=== PATIENT | female | born 1930 | race African-American/Black ===

== ENCOUNTER → 2016-12-12 | Outpatient (CLI) | payer MEDICARE, MEDICAID ==
[~2016-12-12] MED LIST: AMLO10TA80 PO; ATOR20TA65 PO; DETROL; FURO20TA4 PO; IOHEXOL-300 50 ML BOTTLE IV ONE; LIPITOR; OXYB5TAB11 PO; PIOG30TA2 PO; PREG75CA PO; SODIUM CHLORIDE 0.9% 10ML VIAL ONE; TOLT4CAP PO
== END | disposition home or self-care (01) ==
LOC: CT 08:39
PROVIDERS: ATTEND Internal Medicine Gastroenterology
DX: R10.9 Unspecified abdominal pain (principal); M16.12 Unilateral primary osteoarthritis, left hip; Z96.641 Presence of right artificial hip joint
CPT/HCPCS: 74178; A4216; J7040; Q9967; A4315

== ENCOUNTER 2017-09-16 12:05 | Inpatient (IN) | payer MEDICARE, MEDICAID ==
[~2017-09-16] VITALS: Ht 157.5 cm; Wt 48.5 kg
[~2017-09-16 12:05] MED LIST changes: -IOHEXOL-300 50 ML BOTTLE IV ONE; +PIOG30TA10 PO; -PIOG30TA2 PO; -SODIUM CHLORIDE 0.9% 10ML VIAL ONE
[2017-09-16 14:21] LABS: BASOPHILS % 0.2 % (0.0-2.0); EOSINOPHILS % 0.1 % (0.0-5.0); HEMATOCRIT. 31.6 % (36.0-48.0); HEMOGLOBIN. 10.1 g/dL (12.0-16.0); LYMPHOCYTES % 23.1 % (20.0-50.0); MEAN CORPUSCULAR HEMOGLOBIN 25.9 pg (28.0-32.0); MEAN CORPUSCULAR VOLUME 80.6 fL (81.0-99.0); MEAN PLATELET VOLUME 8.7 fl (7.4-10.4); MONOCYTES % 10.3 % (2.0-8.0); NEUTROPHILS % 66.3 % (40.0-76.0); PLATELET 222 x1000/uL (130-400); RED BLOOD CELL COUNT 3.91 mill/uL (4.2-5.4); RED CELL DISTRIBUTION WIDTH 15.1 % (11.6-14.6)
[2017-09-16 14:26] LABS: PROTHROMBIN TIME 10.8 sec (9.4-11.6)
[2017-09-16 14:30] LABS: CHLORIDE 104 mEq/L (98-107)
[2017-09-16 14:35] LABS: BETA HYDROXYBUTYRATE 0.1 mMol/L (0.0-0.3); TROPONIN I < 0.02 ng/mL (0.00-0.04)
[2017-09-16] MEDS ORDERED: ACETAMINOPHEN 325MG TABLET PO PRN (21:15)
[2017-09-16] MEDS ORDERED: DEXTROSE 50% WATER 50ML SYRINGE IV PRN (21:15)
[2017-09-16] MEDS ORDERED: CLONIDINE 0.1MG TABLET PO PRN (21:15)
[2017-09-16] MEDS ORDERED: ONDANSETRON HCL 4MG/2ML VIAL IV PRN (21:15)
[2017-09-16] MEDS ORDERED: MAGNESIUM/ALUMINUM HYDROXIDE/SIMETHICONE 30ML UDC PO PRN (21:15)
[2017-09-16] MEDS ORDERED: DIPHENHYDRAMINE 50MG/ML VIAL IV PRN (21:15)
[2017-09-16] MEDS ORDERED: DEXTROSE 50% WATER 50ML SYRINGE IV ONE (23:45)
[2017-09-17 00:40] VITALS: BP_SYST 178; BP_DIAS 70; BP_DIAS 72
[2017-09-17] MEDS ORDERED: DEXT 5%/0.45% NACL 1000ML 1,000 ML IV ONE (02:00)
[2017-09-17] MEDS ORDERED: FURO20TA4 PO (03:42)
[2017-09-17 04:51] VITALS: BP 139/42
[2017-09-17] MEDS: BLOOD SUGAR DIAGNOSTIC STRIP TEST SCH ×4 (06:04→21:20)
[2017-09-17] MEDS: SODIUM CHLORIDE 0.9% INJ 3ML FLUSH IVF SCH ×3 (06:04→21:21)
[2017-09-17] MEDS ORDERED: INSULIN LISPRO 100 UNITS/ML SUBCUT SCH ×3 (07:50→17:50)
[2017-09-17 08:00] VITALS: BP 130/46
[2017-09-17 08:23] LABS: *AMPHETAMINES SCREEN URINE NEGATIVE (NEGATIVE); *BARBITURATES SCREEN URINE NEGATIVE (NEGATIVE); *BENZODIAZEPINES SCREEN URINE NEGATIVE (NEGATIVE); *COCAINE SCREEN URINE NEGATIVE (NEGATIVE); CANNABINOID URINE SCREEN NEGATIVE (NEGATIVE); METHADONE URINE SCREEN NEGATIVE (NEGATIVE); OPIATES URINE SCREEN NEGATIVE (NEGATIVE); PHENCYCLIDINE URINE SCREEN NEGATIVE (NEGATIVE)
[2017-09-17] MEDS: AMLODIPINE 10MG TABLET PO SCH (08:25)
[2017-09-17] MEDS: OXYBUTYNIN CHLORIDE 5MG TABLET PO SCH ×2 (08:25→16:26)
[2017-09-17] MEDS: FUROSEMIDE 20MG TABLET PO SCH ×2 (08:25→16:26)
[2017-09-17] MEDS: ENOXAPARIN 30MG/0.3ML SYR SUBCUT SCH (08:26)
[2017-09-17] MEDS: PREGABALIN 75MG CAPSULE PO SCH ×3 (08:26→16:30)
[2017-09-17 08:27] LABS: KETONES URINE NEGATIVE (NEGATIVE); LEUKOCYTE ESTERASE URINE 3+ (NEGATIVE); NITRITE URINE NEGATIVE (NEGATIVE); OCCULT BLOOD URINE 1+ (NEGATIVE); PROTEIN URINE 1+ (NEGATIVE); SPECIFIC GRAVITY URINE 1.025 (1.005-1.030); UROBILINOGEN URINE 0.2 E.U./dL (0.2-1.0)
[2017-09-17 08:29] LABS: CLARITY URINE CLOUDY (CLEAR); COLOR URINE YELLOW (YELLOW)
[2017-09-17] MEDS ORDERED: FUROSEMIDE 20MG TABLET PO SCH (09:00)
[2017-09-17 12:00] VITALS: BP 119/34
[2017-09-17] MEDS ORDERED: MAGNESIUM HYDROXIDE 400MG/5ML 30ML UDC PO PRN (15:45)
[2017-09-17 16:00] VITALS: BP 111/51
[2017-09-17 20:06] VITALS: BP 99/40
[2017-09-17] MEDS: INSULIN LISPRO 100 UNITS/ML SUBCUT SCH (21:00)
[2017-09-17] MEDS: ATORVASTATIN CALCIUM 20MG TABLET PO SCH (21:16)
[2017-09-18] VITALS (7 sets, daily range): BP systolic 103–137; BP diastolic 34–53
[2017-09-18] MEDS: BLOOD SUGAR DIAGNOSTIC STRIP TEST SCH ×4 (06:25→21:31)
[2017-09-18] MEDS: INSULIN LISPRO 100 UNITS/ML SUBCUT SCH ×4 (06:30→21:41)
[2017-09-18] MEDS: SODIUM CHLORIDE 0.9% INJ 3ML FLUSH IVF SCH ×3 (06:30→21:40)
[2017-09-18] MEDS: FUROSEMIDE 20MG TABLET PO SCH ×2 (08:44→18:25)
[2017-09-18] MEDS: OXYBUTYNIN CHLORIDE 5MG TABLET PO SCH ×2 (08:44→18:22)
[2017-09-18] MEDS: AMLODIPINE 10MG TABLET PO SCH (08:44)
[2017-09-18] MEDS: PREGABALIN 75MG CAPSULE PO SCH ×3 (08:44→18:22)
[2017-09-18] MEDS: ENOXAPARIN 30MG/0.3ML SYR SUBCUT SCH (08:45)
[2017-09-18] MEDS: ATORVASTATIN CALCIUM 20MG TABLET PO SCH (21:40)
[2017-09-19 04:00] VITALS: BP 149/57
[2017-09-19] MEDS: SODIUM CHLORIDE 0.9% INJ 3ML FLUSH IVF SCH ×3 (06:27→21:38)
[2017-09-19] MEDS: BLOOD SUGAR DIAGNOSTIC STRIP TEST SCH ×4 (06:29→21:38)
[2017-09-19] MEDS: INSULIN LISPRO 100 UNITS/ML SUBCUT SCH ×4 (06:30→21:38)
[2017-09-19 08:01] VITALS: BP 128/42
[2017-09-19] MEDS: FUROSEMIDE 20MG TABLET PO SCH ×2 (08:02→16:59)
[2017-09-19] MEDS: PREGABALIN 75MG CAPSULE PO SCH ×3 (08:02→16:59)
[2017-09-19] MEDS: OXYBUTYNIN CHLORIDE 5MG TABLET PO SCH ×2 (08:02→16:59)
[2017-09-19] MEDS: AMLODIPINE 10MG TABLET PO SCH (08:02)
[2017-09-19] MEDS: ENOXAPARIN 30MG/0.3ML SYR SUBCUT SCH (08:04)
[2017-09-19] MEDS ORDERED: PIOGLITAZONE 15MG TABLET PO SCH (09:00)
[2017-09-19 12:20] VITALS: BP 134/50
[2017-09-19 16:35] VITALS: BP 138/51
[2017-09-19] MEDS: ZINC SULFATE 220 MG ( 50 ) CAPSULE PO SCH (16:58)
[2017-09-19] MEDS: ASCORBIC ACID 500 MG TABLET PO SCH (16:59)
[2017-09-19 20:51] VITALS: BP 114/44
[2017-09-19] MEDS: ATORVASTATIN CALCIUM 20MG TABLET PO SCH (21:33)
[2017-09-20] VITALS: BP 128/53
[2017-09-20 04:00] VITALS: BP 145/46
[2017-09-20] MEDS: SODIUM CHLORIDE 0.9% INJ 3ML FLUSH IVF SCH ×3 (06:05→21:56)
[2017-09-20] MEDS: BLOOD SUGAR DIAGNOSTIC STRIP TEST SCH ×3 (06:38→21:56)
[2017-09-20 07:46] VITALS: BP 156/54
[2017-09-20] MEDS: INSULIN LISPRO 100 UNITS/ML SUBCUT SCH ×3 (08:47→21:57)
[2017-09-20] MEDS: FUROSEMIDE 20MG TABLET PO SCH (08:48)
[2017-09-20] MEDS: OXYBUTYNIN CHLORIDE 5MG TABLET PO SCH ×2 (08:48→21:56)
[2017-09-20] MEDS: ASCORBIC ACID 500 MG TABLET PO SCH (08:48)
[2017-09-20] MEDS: AMLODIPINE 10MG TABLET PO SCH (08:49)
[2017-09-20] MEDS: PREGABALIN 75MG CAPSULE PO SCH ×3 (08:49→21:56)
[2017-09-20] MEDS: ENOXAPARIN 30MG/0.3ML SYR SUBCUT SCH (08:49)
[2017-09-20] MEDS: ZINC SULFATE 220 MG ( 50 ) CAPSULE PO SCH (08:49)
[2017-09-20] MEDS ORDERED: PIOGLITAZONE 15MG TABLET PO SCH (09:00)
[2017-09-20 12:06] VITALS: BP 132/36
[2017-09-20] MEDS ORDERED: PIOGLITAZONE 30MG TABLET PO SCH (15:06)
[2017-09-20 16:26] VITALS: BP 128/51
[2017-09-20] MEDS ORDERED: PREGABALIN 75MG CAPSULE PO NR (18:45)
[2017-09-20] MEDS ORDERED: BLOOD SUGAR DIAGNOSTIC STRIP TEST SCH ×2 (18:45→21:00)
[2017-09-20] MEDS ORDERED: INSULIN LISPRO 100 UNITS/ML SUBCUT SCH (18:45)
[2017-09-20 20:39] VITALS: BP 118/42
[2017-09-20] MEDS ORDERED: MAGNESIUM HYDROXIDE 400MG/5ML 30ML UDC PO PRN (20:45)
[2017-09-20] MEDS ORDERED: DIPHENHYDRAMINE 50MG CAPSULE PO PRN (20:45)
[2017-09-20] MEDS ORDERED: ACETAMINOPHEN 325MG TABLET PO PRN (20:45)
[2017-09-20] MEDS ORDERED: MAGNESIUM/ALUMINUM HYDROXIDE/SIMETHICONE 30ML UDC PO PRN (20:45)
[2017-09-20] MEDS ORDERED: CLONIDINE 0.1MG TABLET PO PRN (20:45)
[2017-09-20] MEDS ORDERED: DEXTROSE 50% WATER 50ML SYRINGE IV PRN ×2 (20:45→21:00)
[2017-09-20] MEDS ORDERED: ONDANSETRON HCL 4MG/2ML VIAL IV PRN (20:45)
[2017-09-20] MEDS ORDERED: ATORVASTATIN CALCIUM 20MG TABLET PO SCH (21:30)
[2017-09-21 00:41] VITALS: BP 99/44
[2017-09-21 04:00] VITALS: BP 141/49
[2017-09-21] MEDS: SODIUM CHLORIDE 0.9% INJ 3ML FLUSH IVF SCH (06:16)
[2017-09-21] MEDS: BLOOD SUGAR DIAGNOSTIC STRIP TEST SCH (06:25)
[2017-09-21] MEDS: INSULIN LISPRO 100 UNITS/ML SUBCUT SCH (07:50)
[2017-09-21 08:25] VITALS: BP 137/44
[2017-09-21] MEDS ORDERED: ASCORBIC ACID 500 MG TABLET PO SCH (09:00)
[2017-09-21] MEDS ORDERED: AMLODIPINE 10MG TABLET PO SCH (09:00)
[2017-09-21] MEDS ORDERED: ENOXAPARIN 30MG/0.3ML SYR SUBCUT SCH (09:00)
[2017-09-21] MEDS ORDERED: ZINC SULFATE 220 MG ( 50 ) CAPSULE PO SCH (09:00)
[2017-09-21] MEDS ORDERED: PIOGLITAZONE 30MG TABLET PO SCH (09:00)
[2017-09-21] MEDS: OXYBUTYNIN CHLORIDE 5MG TABLET PO SCH (09:49)
[2017-09-21] MEDS: PREGABALIN 75MG CAPSULE PO SCH (09:50)
[2017-09-21 10:52] VITALS: BP 125/76
[2017-09-21] MEDS ORDERED: FUROSEMIDE 20MG TABLET PO SCH (21:30)
== END 2017-09-21 11:00 | disposition home or self-care (01) | DRG 637 ==
LOC: ER 12:15 → UNDOADMIN 17:08 → 6WST 17:08 → ENRESERV 19:25 → 6WST 09-20 16:10 → UNDODISIN 09-20 16:31
PROVIDERS: ADMIT Internal Medicine; ATTEND Internal Medicine
DX: E11.649 Type 2 diabetes mellitus with hypoglycemia without coma (principal); G93.41 Metabolic encephalopathy; L89.309 Pressure ulcer of unspecified buttock, unspecified stage; I50.43 Acute on chronic combined systolic (congestive) and diastolic (congestive) heart failure; I13.0 Hypertensive heart and chronic kidney disease with heart failure and stage 1 through stage 4 chronic kidney disease, or unspecified chronic kidney disease; E11.22 Type 2 diabetes mellitus with diabetic chronic kidney disease; D64.9 Anemia, unspecified; L89.899 Pressure ulcer of other site, unspecified stage; R29.6 Repeated falls; J44.9 Chronic obstructive pulmonary disease, unspecified; M48.02 Spinal stenosis, cervical region; N18.9 Chronic kidney disease, unspecified; K21.9 Gastro-esophageal reflux disease without esophagitis; D72.819 Decreased white blood cell count, unspecified; E78.5 Hyperlipidemia, unspecified; H54.7 Unspecified visual loss; M48.061 Spinal stenosis, lumbar region without neurogenic claudication; R32 Unspecified urinary incontinence; Z86.73 Personal history of transient ischemic attack (TIA), and cerebral infarction without residual deficits; Z79.899 Other long term (current) drug therapy; Z87.440 Personal history of urinary (tract) infections
CPT/HCPCS: 36415; 70450; 71045; 80053; 80305; 81003; 82010; 82962; 83036; 83880; 84484; 85025; 85610; 87086; 87106; 93005; 93970; 96374; 96375; 97116; 97162; 97166; 97530; 99285; J1650; J1815

== ENCOUNTER 2018-06-06 00:15 | Inpatient (IN) | payer MEDICARE, MEDICAID ==
[~2018-06-06] VITALS: Ht 149.9 cm; Wt 49.9 kg
[2018-06-06] VITALS (19 sets, daily range): BP systolic 89–138; BP diastolic 47–76
[~2018-06-06 00:15] MED LIST changes: -DETROL; -LIPITOR
[2018-06-06] MEDS ORDERED: ONDANSETRON HCL 4MG/2ML INJ IV STA (00:52)
[2018-06-06] MEDS ORDERED: MORPHINE SULFATE 4 MG/ML CPJ (NOT FOR IM USE) IV STA (00:52)
[2018-06-06] MEDS ORDERED: SODIUM CHLORIDE 0.9% 1,000 ML IV ONE (00:52)
[2018-06-06 02:22] LABS: CHLORIDE 98 mEq/L (98-107)
[2018-06-06] MEDS ORDERED: ASPIRIN 81MG TABLET PO ONE (03:45)
[2018-06-06 04:01] LABS: HEMATOCRIT. 24.2 % (36.0-48.0); MEAN CORPUSCULAR HEMOGLOBIN 25.7 pg (28.0-32.0); MEAN CORPUSCULAR VOLUME 77.6 fL (81.0-99.0); MEAN PLATELET VOLUME 10.1 fl (7.4-10.4); PLATELET 76 x1000/uL (130-400); RED BLOOD CELL COUNT 3.12 mill/uL (4.2-5.4); RED CELL DISTRIBUTION WIDTH 16.5 % (11.6-14.6)
[2018-06-06 04:21] LABS: PLATELET ESTIMATE MARKEDLY DECREASED
[2018-06-06] MEDS ORDERED: ENOXAPARIN 100MG/ML SYR SUBCUT ONE (05:15)
[2018-06-06] MEDS ORDERED: MORPHINE SULFATE 4 MG/ML CPJ (NOT FOR IM USE) IV PRN (09:15)
[2018-06-06] MEDS ORDERED: ACETAMINOPHEN 325MG TABLET PO PRN (09:15)
[2018-06-06] MEDS ORDERED: CLONIDINE 0.1MG TABLET PO PRN (09:15)
[2018-06-06] MEDS: ASPIRIN 81MG EC TABLET PO SCH (09:30)
[2018-06-06 11:24] LABS: TOTAL IRON BINDING CAPACITY 178 ug/dL (250-450)
[2018-06-06] MEDS: NITROGLYCERIN OINT 1GM/INCH UDPKT TD SCH ×3 (12:02→23:27)
[2018-06-06] MEDS: ONDANSETRON HCL 4MG/2ML INJ IV PRN (12:09)
[2018-06-06] MEDS: LOSARTAN POTASSIUM 25 MG TABLET PO SCH (12:09)
[2018-06-06] MEDS: SODIUM CHLORIDE 0.9% INJ 3ML FLUSH IVF SCH ×2 (14:00→21:22)
[2018-06-06] MEDS: LACTULOSE 20G/30ML UDC PO SCH ×2 (15:02→23:27)
[2018-06-06] MEDS ORDERED: DEXTROSE 50% WATER 50ML SYRINGE IV PRN (18:45)
[2018-06-06] MEDS: METOPROLOL TARTRATE 25MG TABLET PO SCH (20:33)
[2018-06-06] MEDS: BLOOD SUGAR DIAGNOSTIC STRIP TEST SCH (21:21)
[2018-06-06] MEDS: ATORVASTATIN CALCIUM 20MG TABLET PO SCH (21:49)
[2018-06-06] MEDS: INSULIN LISPRO 100 UNITS/ML SUBCUT SCH (21:50)
[2018-06-07] VITALS (37 sets, daily range): BP systolic 84–121; BP diastolic 50–76
[2018-06-07] MEDS: SODIUM CHLORIDE 0.9% INJ 3ML FLUSH IVF SCH ×3 (05:17→22:41)
[2018-06-07] MEDS: NITROGLYCERIN OINT 1GM/INCH UDPKT TD SCH ×4 (05:17→23:58)
[2018-06-07] MEDS: LACTULOSE 20G/30ML UDC PO SCH ×3 (05:24→22:37)
[2018-06-07] MEDS: BLOOD SUGAR DIAGNOSTIC STRIP TEST SCH ×4 (07:50→21:00)
[2018-06-07] MEDS: INSULIN LISPRO 100 UNITS/ML SUBCUT SCH ×4 (08:20→22:41)
[2018-06-07 08:39] LABS: CHLORIDE 102 mEq/L (98-107)
[2018-06-07 08:41] LABS: CREATINE KINASE 102 IU/L (26-192); HDL CHOLESTEROL 55 mg/dL (40-59); LDL CHOLESTEROL 115 mg/dL (5-100)
[2018-06-07] MEDS: LOSARTAN POTASSIUM 25 MG TABLET PO SCH (09:00)
[2018-06-07] MEDS: METOPROLOL TARTRATE 25MG TABLET PO SCH ×2 (09:00→21:00)
[2018-06-07 09:07] LABS: HEMATOCRIT. 29.2 % (36.0-48.0); HEMOGLOBIN. 9.6 g/dL (12.0-16.0); RED CELL DISTRIBUTION WIDTH 16.4 % (11.6-14.6)
[2018-06-07 09:08] LABS: MEAN PLATELET VOLUME 10.9 fl (7.4-10.4); PLATELET 96 x1000/uL (130-400)
[2018-06-07] MEDS ORDERED: POTASSIUM CHLORIDE 20MEQ TABLET SR PO NR (10:15)
[2018-06-07] MEDS ORDERED: KCL 20MEQ/100ML PREMIX 100 ML IV ONE (10:30)
[2018-06-07] MEDS ORDERED: MAGNESIUM 2 G PREMIX 50 ML IV ONE (10:30)
[2018-06-07] MEDS ORDERED: POTASSIUM CHLORIDE 20MEQ/PACKET PO NR (10:47)
[2018-06-07 10:50] LABS: PLATELET ESTIMATE DECREASED
[2018-06-07] MEDS ORDERED: POTASSIUM CHLORIDE INJ 40 MEQ in DEXT 5% WATER 250 ML IV NR (11:00)
[2018-06-07] MEDS: ASPIRIN 81MG EC TABLET PO SCH (11:27)
[2018-06-07] MEDS: ENOXAPARIN 30MG/0.3ML SYR SUBCUT SCH ×2 (11:27→11:29)
[2018-06-07] MEDS ORDERED: MAGNESIUM 2 G PREMIX 50 ML IV NR (12:00)
[2018-06-07] MEDS: ATORVASTATIN CALCIUM 20MG TABLET PO SCH (22:38)
[2018-06-08] VITALS (14 sets, daily range): BP systolic 99–149; BP diastolic 59–70
[2018-06-08 05:43] LABS: HEMATOCRIT. 28.6 % (36.0-48.0); HEMOGLOBIN. 9.4 g/dL (12.0-16.0); MEAN CORPUSCULAR HEMOGLOBIN 26.1 pg (28.0-32.0); MEAN CORPUSCULAR VOLUME 79.1 fL (81.0-99.0); MEAN PLATELET VOLUME 11.8 fl (7.4-10.4); PLATELET 100 x1000/uL (130-400); RED BLOOD CELL COUNT 3.61 mill/uL (4.2-5.4); RED CELL DISTRIBUTION WIDTH 16.4 % (11.6-14.6)
[2018-06-08 05:50] LABS: CHLORIDE 103 mEq/L (98-107)
[2018-06-08 05:56] LABS: PHOSPHORUS 2.9 mg/dL (2.5-4.9)
[2018-06-08] MEDS: NITROGLYCERIN OINT 1GM/INCH UDPKT TD SCH ×3 (06:00→18:00)
[2018-06-08] MEDS: SODIUM CHLORIDE 0.9% INJ 3ML FLUSH IVF SCH ×3 (06:59→22:00)
[2018-06-08] MEDS: BLOOD SUGAR DIAGNOSTIC STRIP TEST SCH ×4 (06:59→20:48)
[2018-06-08] MEDS: INSULIN LISPRO 100 UNITS/ML SUBCUT SCH ×5 (06:59→21:19)
[2018-06-08] MEDS ORDERED: POTASSIUM CHLORIDE 20MEQ/PACKET PO NR (07:15)
[2018-06-08] MEDS: LACTULOSE 20G/30ML UDC PO SCH ×3 (07:41→21:18)
[2018-06-08] MEDS: ENOXAPARIN 30MG/0.3ML SYR SUBCUT SCH (09:39)
[2018-06-08] MEDS: METOPROLOL TARTRATE 25MG TABLET PO SCH ×2 (09:39→20:48)
[2018-06-08] MEDS: ASPIRIN 81MG EC TABLET PO SCH (09:40)
[2018-06-08] MEDS: LOSARTAN POTASSIUM 25 MG TABLET PO SCH (09:40)
[2018-06-08] MEDS: ONDANSETRON HCL 4MG/2ML INJ IV PRN (11:48)
[2018-06-08 12:27] LABS: PLATELET ESTIMATE NORMAL
[2018-06-08] MEDS: ATORVASTATIN CALCIUM 20MG TABLET PO SCH (21:17)
[2018-06-09] VITALS (12 sets, daily range): BP systolic 95–124; BP diastolic 59–75
[2018-06-09] MEDS: SODIUM CHLORIDE 0.9% INJ 3ML FLUSH IVF SCH ×3 (06:00→22:00)
[2018-06-09] MEDS: NITROGLYCERIN OINT 1GM/INCH UDPKT TD SCH ×4 (06:00→17:15)
[2018-06-09] MEDS: LACTULOSE 20G/30ML UDC PO SCH ×3 (06:20→22:11)
[2018-06-09 07:26] LABS: HEMATOCRIT. 31.7 % (36.0-48.0); HEMOGLOBIN. 10.6 g/dL (12.0-16.0); MEAN CORPUSCULAR HEMOGLOBIN 26.2 pg (28.0-32.0); MEAN CORPUSCULAR VOLUME 78.6 fL (81.0-99.0); MEAN PLATELET VOLUME 10.8 fl (7.4-10.4); PLATELET 109 x1000/uL (130-400); RED BLOOD CELL COUNT 4.04 mill/uL (4.2-5.4); RED CELL DISTRIBUTION WIDTH 16.2 % (11.6-14.6)
[2018-06-09 07:49] LABS: CHLORIDE 103 mEq/L (98-107)
[2018-06-09] MEDS: INSULIN LISPRO 100 UNITS/ML SUBCUT SCH ×4 (08:00→21:00)
[2018-06-09] MEDS: BLOOD SUGAR DIAGNOSTIC STRIP TEST SCH ×4 (08:24→21:21)
[2018-06-09] MEDS: LOSARTAN POTASSIUM 25 MG TABLET PO SCH (08:32)
[2018-06-09] MEDS: METOPROLOL TARTRATE 25MG TABLET PO SCH ×2 (08:33→21:00)
[2018-06-09] MEDS: ASPIRIN 81MG EC TABLET PO SCH (08:33)
[2018-06-09] MEDS: ENOXAPARIN 30MG/0.3ML SYR SUBCUT SCH (08:33)
[2018-06-09 11:17] LABS: PLATELET ESTIMATE SLIGHTLY DECREASED
[2018-06-09] MEDS: ATORVASTATIN CALCIUM 20MG TABLET PO SCH (22:10)
[2018-06-10] VITALS (12 sets, daily range): BP systolic 96–129; BP diastolic 48–84
[2018-06-10] MEDS: NITROGLYCERIN OINT 1GM/INCH UDPKT TD SCH ×4 (00:25→18:00)
[2018-06-10] MEDS: SODIUM CHLORIDE 0.9% INJ 3ML FLUSH IVF SCH ×3 (06:00→22:00)
[2018-06-10] MEDS: LACTULOSE 20G/30ML UDC PO SCH ×3 (06:00→21:41)
[2018-06-10 06:12] LABS: HEMATOCRIT. 29.3 % (36.0-48.0); HEMOGLOBIN. 9.7 g/dL (12.0-16.0); MEAN CORPUSCULAR VOLUME 78.7 fL (81.0-99.0); MEAN PLATELET VOLUME 10.8 fl (7.4-10.4); PLATELET 108 x1000/uL (130-400); RED BLOOD CELL COUNT 3.73 mill/uL (4.2-5.4); RED CELL DISTRIBUTION WIDTH 16.4 % (11.6-14.6)
[2018-06-10 06:56] LABS: CHLORIDE 105 mEq/L (98-107)
[2018-06-10] MEDS: INSULIN LISPRO 100 UNITS/ML SUBCUT SCH ×4 (07:45→21:30)
[2018-06-10] MEDS: BLOOD SUGAR DIAGNOSTIC STRIP TEST SCH ×4 (07:45→21:30)
[2018-06-10] MEDS: LOSARTAN POTASSIUM 25 MG TABLET PO SCH (08:26)
[2018-06-10] MEDS: ASPIRIN 81MG EC TABLET PO SCH (08:26)
[2018-06-10] MEDS: ENOXAPARIN 30MG/0.3ML SYR SUBCUT SCH (08:26)
[2018-06-10] MEDS: METOPROLOL TARTRATE 25MG TABLET PO SCH ×2 (08:26→21:00)
[2018-06-10] MEDS: ONDANSETRON HCL 4MG/2ML INJ IV PRN (10:48)
[2018-06-10 12:48] LABS: PLATELET ESTIMATE SLIGHTLY DECREASED
[2018-06-10] MEDS ORDERED: BISACODYL 10MG SUPP PR NR (13:45)
[2018-06-10] MEDS: ATORVASTATIN CALCIUM 20MG TABLET PO SCH (21:38)
[2018-06-11] VITALS (12 sets, daily range): BP systolic 100–121; BP diastolic 54–70
[2018-06-11] MEDS: NITROGLYCERIN OINT 1GM/INCH UDPKT TD SCH ×4 (06:00→17:27)
[2018-06-11] MEDS: LACTULOSE 20G/30ML UDC PO SCH ×3 (06:06→22:00)
[2018-06-11] MEDS: SODIUM CHLORIDE 0.9% INJ 3ML FLUSH IVF SCH ×3 (06:07→22:00)
[2018-06-11] MEDS: BLOOD SUGAR DIAGNOSTIC STRIP TEST SCH ×4 (07:53→21:45)
[2018-06-11] MEDS: INSULIN LISPRO 100 UNITS/ML SUBCUT SCH ×4 (08:00→21:48)
[2018-06-11] MEDS: ASPIRIN 81MG EC TABLET PO SCH (08:04)
[2018-06-11] MEDS: LOSARTAN POTASSIUM 25 MG TABLET PO SCH (08:05)
[2018-06-11] MEDS: METOPROLOL TARTRATE 25MG TABLET PO SCH ×2 (08:05→21:00)
[2018-06-11] MEDS: ENOXAPARIN 30MG/0.3ML SYR SUBCUT SCH (08:09)
[2018-06-11] MEDS: ATORVASTATIN CALCIUM 20MG TABLET PO SCH (21:22)
[2018-06-12] VITALS (9 sets, daily range): BP systolic 105–133; BP diastolic 58–80
[2018-06-12] MEDS: LACTULOSE 20G/30ML UDC PO SCH ×2 (06:00→14:00)
[2018-06-12] MEDS: NITROGLYCERIN OINT 1GM/INCH UDPKT TD SCH ×3 (06:49→12:24)
[2018-06-12] MEDS: INSULIN LISPRO 100 UNITS/ML SUBCUT SCH ×2 (08:00→12:25)
[2018-06-12] MEDS: BLOOD SUGAR DIAGNOSTIC STRIP TEST SCH ×2 (08:03→12:19)
[2018-06-12] MEDS: METOPROLOL TARTRATE 25MG TABLET PO SCH (08:30)
[2018-06-12] MEDS: ASPIRIN 81MG EC TABLET PO SCH (08:30)
[2018-06-12] MEDS: LOSARTAN POTASSIUM 25 MG TABLET PO SCH (08:31)
[2018-06-12] MEDS: ENOXAPARIN 30MG/0.3ML SYR SUBCUT SCH (08:32)
[2018-06-12] MEDS ORDERED: ATOR20TA MT (15:30)
== END 2018-06-12 17:35 | disposition home health service (06) | DRG 280 ==
LOC: ER 00:15 → CVICU 04:57 → EDBEDREQ 05:07 → EDBEDREQTM 05:07 → EDBEDREQSVC 05:10 → ENRESERV 07:07 → 5EST 06-07 17:04
PROVIDERS: ADMIT Internal Medicine; ATTEND Internal Medicine
DX: I21.4 Non-ST elevation (NSTEMI) myocardial infarction (principal); E43 Unspecified severe protein-calorie malnutrition; D61.818 Other pancytopenia; J90 Pleural effusion, not elsewhere classified; I31.3 Pericardial effusion (noninflammatory); E87.1 Hypo-osmolality and hyponatremia; E87.6 Hypokalemia; E83.42 Hypomagnesemia; I27.20 Pulmonary hypertension, unspecified; E11.42 Type 2 diabetes mellitus with diabetic polyneuropathy; E11.649 Type 2 diabetes mellitus with hypoglycemia without coma; E78.00 Pure hypercholesterolemia, unspecified; I25.5 Ischemic cardiomyopathy; I10 Essential (primary) hypertension; K21.9 Gastro-esophageal reflux disease without esophagitis; Z86.73 Personal history of transient ischemic attack (TIA), and cerebral infarction without residual deficits; Z87.440 Personal history of urinary (tract) infections; Z91.14 Patient's other noncompliance with medication regimen; Z68.22 Body mass index [BMI] 22.0-22.9, adult; Z79.899 Other long term (current) drug therapy
CPT/HCPCS: 36415; 71045; 74176; 80048; 80061; 82270; 82550; 82553; 82962; 83036; 83540; 83550; 83735; 83880; 84100; 84443; 84484; 85044; 85379; 92610; 93005; 93306; 93970; 96374; 96375; 97162; 97166; 97530; 99291; C1893; J1650; J1815; J2270; J2405; J3475; J3480; J7030; J7050; J7060

== ENCOUNTER 2018-07-18 10:33 | Inpatient (IN) | payer MEDICARE, MEDICAID ==
[~2018-07-18] VITALS: Ht 149.9 cm; Wt 47.3 kg
[~2018-07-18 10:33] MED LIST changes: +ATOR20TA MT
[2018-07-18] MEDS ORDERED: SODIUM CHLORIDE 0.9% 250 ML IV ONE (11:08)
[2018-07-18] MEDS ORDERED: SODIUM CHLORIDE 0.9% 1000ML BAG (SEPSIS BOLUS) IV ONE (11:15)
[2018-07-18 12:16] LABS: CHLORIDE 98 mEq/L (98-107)
[2018-07-18 12:19] LABS: HEMATOCRIT. 31.8 % (36.0-48.0); HEMOGLOBIN. 10.2 g/dL (12.0-16.0); MEAN CORPUSCULAR VOLUME 81.1 fL (81.0-99.0); PLATELET 105 x1000/uL (130-400); RED BLOOD CELL COUNT 3.92 mill/uL (4.2-5.4); RED CELL DISTRIBUTION WIDTH 18.6 % (11.6-14.6)
[2018-07-18 12:20] LABS: INR 1.3; PARTIAL THROMBOPLASTIN TIME 27.3 sec (23.4-31.0); PROTHROMBIN TIME 13.1 sec (9.1-11.1)
[2018-07-18] MEDS ORDERED: FUROSEMIDE 20MG/2ML VIAL IVP ONE (13:00)
[2018-07-18] MEDS ORDERED: CEFTRIAXONE 1 G PREMIX 50 ML IV ONE (13:00)
[2018-07-18] MEDS ORDERED: POTASSIUM CHLORIDE 20MEQ TABLET SR PO ONE (13:00)
[2018-07-18 13:21] LABS: PLATELET ESTIMATE SLIGHTLY DECREASED
[2018-07-18 15:08] LABS: CLARITY URINE TURBID (CLEAR); KETONES URINE 1+ (NEGATIVE); LEUKOCYTE ESTERASE URINE 1+ (NEGATIVE); NITRITE URINE NEGATIVE (NEGATIVE); OCCULT BLOOD URINE 3+ (NEGATIVE); PH URINE 5.5 (4.5-8.0); PROTEIN URINE 3+ (NEGATIVE); SPECIFIC GRAVITY URINE 1.031 (1.005-1.030)
[2018-07-18 15:22] LABS: COLOR URINE YELLOW (YELLOW)
[2018-07-18] MEDS ORDERED: POTASSIUM CHLORIDE 20MEQ/PACKET PO ONE ×2 (16:30→21:00)
[2018-07-18 16:45] VITALS: BP 140/64
[2018-07-18 17:04] VITALS: BP 140/64
[2018-07-18 17:25] VITALS: BP 140/64
[2018-07-18] MEDS ORDERED: ONDANSETRON HCL 4MG/2ML INJ IV PRN (19:30)
[2018-07-18] MEDS ORDERED: CLONIDINE 0.1MG TABLET PO PRN (19:30)
[2018-07-18] MEDS ORDERED: ACETAMINOPHEN 325MG TABLET PO PRN (19:30)
[2018-07-18] MEDS ORDERED: MAGNESIUM/ALUMINUM HYDROXIDE/SIMETHICONE 30ML UDC PO PRN (19:30)
[2018-07-18 20:12] VITALS: BP 149/72
[2018-07-18] MEDS: METOPROLOL TARTRATE 25MG TABLET PO SCH (20:59)
[2018-07-18] MEDS: BLOOD SUGAR DIAGNOSTIC STRIP TEST SCH (20:59)
[2018-07-18] MEDS: ATORVASTATIN CALCIUM 20MG TABLET PO SCH (20:59)
[2018-07-18] MEDS ORDERED: ENOXAPARIN 30MG/0.3ML SYR SUBCUT SCH (21:00)
[2018-07-18] MEDS ORDERED: LEVOFLOXACIN 500MG PREMIX 100 ML IV SCH (21:00)
[2018-07-18] MEDS: INSULIN LISPRO 100 UNITS/ML SUBCUT SCH (21:08)
[2018-07-18] MEDS: SODIUM CHLORIDE 0.9% INJ 3ML FLUSH IVF SCH (21:14)
[2018-07-19] VITALS (7 sets, daily range): BP systolic 92–110; BP diastolic 48–71
[2018-07-19] MEDS: BLOOD SUGAR DIAGNOSTIC STRIP TEST SCH ×4 (06:09→20:51)
[2018-07-19] MEDS: SODIUM CHLORIDE 0.9% INJ 3ML FLUSH IVF SCH ×3 (06:10→21:35)
[2018-07-19] MEDS: DEXTROSE 50% WATER 50ML SYRINGE IV PRN (06:25)
[2018-07-19] MEDS: INSULIN LISPRO 100 UNITS/ML SUBCUT SCH ×4 (06:40→20:51)
[2018-07-19] MEDS: LOSARTAN POTASSIUM 25 MG TABLET PO SCH (08:47)
[2018-07-19] MEDS: ASPIRIN 81MG EC TABLET PO SCH (08:47)
[2018-07-19] MEDS: METOPROLOL TARTRATE 25MG TABLET PO SCH ×2 (08:47→21:00)
[2018-07-19] MEDS ORDERED: FUROSEMIDE 20MG/2ML VIAL IVP SCH (09:00)
[2018-07-19] MEDS ORDERED: FUROSEMIDE 20MG TABLET PO SCH (09:00)
[2018-07-19] MEDS ORDERED: PIOGLITAZONE 15MG TABLET PO SCH (09:00)
[2018-07-19] MEDS: ATORVASTATIN CALCIUM 20MG TABLET PO SCH (21:35)
[2018-07-19] MEDS: LEVOFLOXACIN 250MG PREMIX 50 ML IV SCH (21:35)
[2018-07-20] VITALS: BP 94/50
[2018-07-20] MEDS: DEXTROSE 50% WATER 50ML SYRINGE IV PRN (00:20)
[2018-07-20 04:00] VITALS: BP 95/60
[2018-07-20] MEDS ORDERED: DEXTROSE 5% WATER 1,000 ML IV NR (05:00)
[2018-07-20] MEDS ORDERED: DEXT 5% WATER 500 ML IV NR (05:00)
[2018-07-20] MEDS: SODIUM CHLORIDE 0.9% INJ 3ML FLUSH IVF SCH ×3 (05:11→21:35)
[2018-07-20] MEDS: BLOOD SUGAR DIAGNOSTIC STRIP TEST SCH ×4 (06:37→21:35)
[2018-07-20] MEDS: INSULIN LISPRO 100 UNITS/ML SUBCUT SCH ×4 (06:38→21:00)
[2018-07-20 07:01] LABS: PHOSPHORUS 3.9 mg/dL (2.5-4.9)
[2018-07-20 07:04] LABS: HEMATOCRIT. 36.8 % (36.0-48.0); HEMOGLOBIN. 11.8 g/dL (12.0-16.0); MEAN CORPUSCULAR VOLUME 80.9 fL (81.0-99.0); MEAN PLATELET VOLUME 11.5 fl (7.4-10.4); PLATELET 119 x1000/uL (130-400); RED BLOOD CELL COUNT 4.54 mill/uL (4.2-5.4); RED CELL DISTRIBUTION WIDTH 18.8 % (11.6-14.6)
[2018-07-20 08:00] VITALS: BP 103/48
[2018-07-20] MEDS: ASPIRIN 81MG EC TABLET PO SCH (09:00)
[2018-07-20] MEDS ORDERED: PIOGLITAZONE 15MG TABLET PO SCH (09:00)
[2018-07-20] MEDS: LOSARTAN POTASSIUM 25 MG TABLET PO SCH (09:00)
[2018-07-20] MEDS: METOPROLOL TARTRATE 25MG TABLET PO SCH ×2 (09:00→21:00)
[2018-07-20 12:00] VITALS: BP 99/40
[2018-07-20] MEDS ORDERED: VANCOMYCIN 750 MG PREMIX 150 ML IV SCH ×3 (12:30→14:00)
[2018-07-20 16:00] VITALS: BP 104/38
[2018-07-20 16:43] LABS: NUCLEATED RED BLOOD CELLS 1 /100 WBC
[2018-07-20 16:45] LABS: PLATELET ESTIMATE NORMAL
[2018-07-20 20:00] VITALS: BP 109/35
[2018-07-20] MEDS: LEVOFLOXACIN 250MG PREMIX 50 ML IV SCH (21:34)
[2018-07-20] MEDS: ATORVASTATIN CALCIUM 20MG TABLET PO SCH (21:35)
[2018-07-21] VITALS: BP 112/46
[2018-07-21 04:00] VITALS: BP 119/68
[2018-07-21] MEDS: BLOOD SUGAR DIAGNOSTIC STRIP TEST SCH ×4 (06:01→21:22)
[2018-07-21] MEDS: INSULIN LISPRO 100 UNITS/ML SUBCUT SCH ×4 (06:51→21:21)
[2018-07-21] MEDS: SODIUM CHLORIDE 0.9% INJ 3ML FLUSH IVF SCH ×3 (06:51→21:22)
[2018-07-21] MEDS: LOSARTAN POTASSIUM 25 MG TABLET PO SCH (09:11)
[2018-07-21] MEDS: ASPIRIN 81MG EC TABLET PO SCH (09:11)
[2018-07-21] MEDS: METOPROLOL TARTRATE 25MG TABLET PO SCH ×2 (09:11→21:00)
[2018-07-21 12:00] VITALS: BP 100/49
[2018-07-21] MEDS ORDERED: POTASSIUM CHLORIDE INJ 40 MEQ in DEXT 5% WATER 250 ML IV SCH (12:00)
[2018-07-21] MEDS: LEVOTHYROXINE SODIUM 50MCG TABLET PO SCH (13:11)
[2018-07-21 16:00] VITALS: BP 126/56
[2018-07-21] MEDS ORDERED: VANCOMYCIN 1 G PREMIX 200 ML IV SCH (18:00)
[2018-07-21 20:00] VITALS: BP 98/45
[2018-07-21] MEDS: ATORVASTATIN CALCIUM 20MG TABLET PO SCH (21:20)
[2018-07-21] MEDS: LEVOFLOXACIN 250MG PREMIX 50 ML IV SCH (21:21)
[2018-07-22] VITALS (8 sets, daily range): BP systolic 83–101; BP diastolic 33–51
[2018-07-22] MEDS: SODIUM CHLORIDE 0.9% INJ 3ML FLUSH IVF SCH ×3 (06:56→21:18)
[2018-07-22] MEDS: BLOOD SUGAR DIAGNOSTIC STRIP TEST SCH ×4 (06:57→20:49)
[2018-07-22] MEDS: LEVOTHYROXINE SODIUM 50MCG TABLET PO SCH (06:57)
[2018-07-22] MEDS: INSULIN LISPRO 100 UNITS/ML SUBCUT SCH ×4 (06:57→21:15)
[2018-07-22 07:23] LABS: HEMOGLOBIN. 13.4 g/dL (12.0-16.0); MEAN CORPUSCULAR HEMOGLOBIN 26.1 pg (28.0-32.0); MEAN CORPUSCULAR VOLUME 81.6 fL (81.0-99.0); MEAN PLATELET VOLUME 10.9 fl (7.4-10.4); PLATELET 124 x1000/uL (130-400); RED BLOOD CELL COUNT 5.15 mill/uL (4.2-5.4)
[2018-07-22 08:09] LABS: PHOSPHORUS 3.2 mg/dL (2.5-4.9)
[2018-07-22] MEDS: LOSARTAN POTASSIUM 25 MG TABLET PO SCH (09:00)
[2018-07-22] MEDS: METOPROLOL TARTRATE 25MG TABLET PO SCH ×2 (09:00→21:00)
[2018-07-22] MEDS: ASPIRIN 81MG EC TABLET PO SCH (09:12)
[2018-07-22] MEDS ORDERED: MAGNESIUM 2 G PREMIX 50 ML IV SCH (12:00)
[2018-07-22] MEDS: MEGESTROL ACETATE 400 MG/10 ML UDC PO SCH (16:32)
[2018-07-22] MEDS ORDERED: VANCOMYCIN 750 MG PREMIX 150 ML IV SCH (20:00)
[2018-07-22] MEDS: LEVOFLOXACIN 250MG PREMIX 50 ML IV SCH (21:13)
[2018-07-22] MEDS: ATORVASTATIN CALCIUM 20MG TABLET PO SCH (21:13)
[2018-07-22 21:28] LABS: PLATELET ESTIMATE SLIGHTLY DECREASED
[2018-07-23] VITALS: BP 86/43
[2018-07-23 04:00] VITALS: BP 88/44
[2018-07-23] MEDS: MEGESTROL ACETATE 400 MG/10 ML UDC PO SCH ×2 (04:39→16:38)
[2018-07-23] MEDS: BLOOD SUGAR DIAGNOSTIC STRIP TEST SCH ×4 (06:18→20:56)
[2018-07-23] MEDS: SODIUM CHLORIDE 0.9% INJ 3ML FLUSH IVF SCH ×2 (06:18→20:57)
[2018-07-23] MEDS: LEVOTHYROXINE SODIUM 50MCG TABLET PO SCH (06:18)
[2018-07-23] MEDS: INSULIN LISPRO 100 UNITS/ML SUBCUT SCH ×4 (06:18→21:04)
[2018-07-23 08:00] VITALS: BP 97/44
[2018-07-23] MEDS: LOSARTAN POTASSIUM 25 MG TABLET PO SCH (09:00)
[2018-07-23] MEDS: METOPROLOL TARTRATE 25MG TABLET PO SCH ×2 (09:00→20:25)
[2018-07-23] MEDS: ASPIRIN 81MG EC TABLET PO SCH (09:13)
[2018-07-23 12:00] VITALS: BP 94/46
[2018-07-23] MEDS ORDERED: VANCOMYCIN 750 MG PREMIX 150 ML IV SCH (14:45)
[2018-07-23] MEDS ORDERED: SODIUM POLYSTYRENE SULFONATE 15 G/60 ML BOT PO NR (15:30)
[2018-07-23 16:00] VITALS: BP_SYST 109; BP_SYST 97; BP_DIAS 44; BP_DIAS 52
[2018-07-23] MEDS: VANCOMYCIN 750 MG PREMIX 150 ML IV SCH (19:02)
[2018-07-23 20:00] VITALS: BP 107/47
[2018-07-23] MEDS: ATORVASTATIN CALCIUM 20MG TABLET PO SCH (20:25)
[2018-07-23] MEDS ORDERED: LEVOFLOXACIN 250MG TABLET PO SCH (21:00)
[2018-07-24] VITALS (7 sets, daily range): BP systolic 107–123; BP diastolic 45–74
[2018-07-24] MEDS: MEGESTROL ACETATE 400 MG/10 ML UDC PO SCH ×2 (03:13→17:10)
[2018-07-24] MEDS: LEVOTHYROXINE SODIUM 50MCG TABLET PO SCH (06:09)
[2018-07-24] MEDS: SODIUM CHLORIDE 0.9% INJ 3ML FLUSH IVF SCH ×2 (06:09→14:00)
[2018-07-24] MEDS: INSULIN LISPRO 100 UNITS/ML SUBCUT SCH ×3 (06:51→17:10)
[2018-07-24] MEDS: BLOOD SUGAR DIAGNOSTIC STRIP TEST SCH ×3 (06:51→17:11)
[2018-07-24] MEDS: ASPIRIN 81MG EC TABLET PO SCH (08:18)
[2018-07-24] MEDS: LOSARTAN POTASSIUM 25 MG TABLET PO SCH (09:00)
[2018-07-24] MEDS: METOPROLOL TARTRATE 25MG TABLET PO SCH (09:00)
[2018-07-24 11:02] LABS: CHLORIDE 102 mEq/L (98-107)
[2018-07-24] MEDS: VANCOMYCIN 750 MG PREMIX 150 ML IV SCH (12:21)
[2018-07-24] MEDS ORDERED: POTASSIUM CHLORIDE 20MEQ TABLET SR PO NR (18:30)
[2018-07-24] MEDS ORDERED: CARVEDILOL 3.125 MG TABLET PO SCH (21:00)
== END 2018-07-24 20:25 | DRG 871 ==
LOC: ER 10:39 → 5WST 13:21 → EDBEDREQ 13:29 → EDBEDREQTM 13:29 → ENRESERV 13:39
PROVIDERS: ADMIT Internal Medicine; ATTEND Internal Medicine
DX: A41.1 Sepsis due to other specified staphylococcus (principal); G92 Toxic encephalopathy; E43 Unspecified severe protein-calorie malnutrition; I50.23 Acute on chronic systolic (congestive) heart failure; N39.0 Urinary tract infection, site not specified; D61.818 Other pancytopenia; E11.9 Type 2 diabetes mellitus without complications; D50.9 Iron deficiency anemia, unspecified; I11.0 Hypertensive heart disease with heart failure; I48.0 Paroxysmal atrial fibrillation; K21.9 Gastro-esophageal reflux disease without esophagitis; Z96.641 Presence of right artificial hip joint; Z68.21 Body mass index [BMI] 21.0-21.9, adult; Z79.84 Long term (current) use of oral hypoglycemic drugs; Z86.73 Personal history of transient ischemic attack (TIA), and cerebral infarction without residual deficits; Z79.899 Other long term (current) drug therapy
CPT/HCPCS: 36415; 71045; 74176; 80048; 80202; 82962; 83605; 83735; 83880; 84100; 84134; 84145; 84443; 84484; 87077; 87186; 93005; 93970; 96365; 96366; 96375; 97110; 97162; 97530; 99291; C1893; J0696; J1815; J1940; J1956; J2405; J3370; J3475; J3480; J7030; J7050; J7060; A4315

== ENCOUNTER 2018-08-09 11:24 | Inpatient (IN) | payer MEDICARE, MEDICAID ==
[~2018-08-09] VITALS: Ht 160 cm; Wt 62.1 kg
[2018-08-09] MEDS ORDERED: SODIUM CHLORIDE 0.9% 1,000 ML IV ONE ×2 (12:00→15:15)
[2018-08-09 13:24] LABS: HEMATOCRIT. 32.4 % (36.0-48.0); HEMOGLOBIN. 10.6 g/dL (12.0-16.0); MEAN CORPUSCULAR HEMOGLOBIN 25.9 pg (28.0-32.0); MEAN CORPUSCULAR VOLUME 78.7 fL (81.0-99.0); MEAN PLATELET VOLUME 11.1 fl (7.4-10.4); PLATELET 152 x1000/uL (130-400); RED BLOOD CELL COUNT 4.11 mill/uL (4.2-5.4); RED CELL DISTRIBUTION WIDTH 18.6 % (11.6-14.6)
[2018-08-09 13:31] LABS: CHLORIDE 107 mEq/L (98-107)
[2018-08-09 14:06] LABS: PLATELET ESTIMATE NORMAL
[2018-08-09] MEDS ORDERED: SODIUM BICARBONATE 4% (2.4MEQ) 5ML VIAL IV ONE (14:10)
[2018-08-09] MEDS ORDERED: LIDOCAINE HCL 1% 20ML VIAL (Pyxis) INJ ONE (14:10)
[2018-08-09] MEDS ORDERED: NOREPINEPHRINE 4 MG in DEXT 5% WATER 246 ML IV ONE (15:45)
[2018-08-09] MEDS ORDERED: CEFTRIAXONE 1 G PREMIX 50 ML IV ONE (15:45)
[2018-08-09 16:28] LABS: CLARITY URINE CLEAR (CLEAR); COLOR URINE DARK YELLOW (YELLOW); KETONES URINE NEGATIVE (NEGATIVE); LEUKOCYTE ESTERASE URINE NEGATIVE (NEGATIVE); NITRITE URINE NEGATIVE (NEGATIVE); OCCULT BLOOD URINE NEGATIVE (NEGATIVE); PROTEIN URINE 2+ (NEGATIVE); SPECIFIC GRAVITY URINE 1.023 (1.005-1.030)
[2018-08-09] MEDS ORDERED: NOREPINEPHRINE 4MG/250ML PMX 250 ML IV ONE ×2 (16:45→21:45)
[2018-08-09] MEDS ORDERED: MIDAZOLAM HCL 50 MG in DEXTROSE 5% WATER 40 ML IV ONE ×3 (17:30→21:45)
[2018-08-09] MEDS ORDERED: MIDAZOLAM HCL 2 MG/2 ML VIAL IV ONE (17:30)
[2018-08-09] MEDS ORDERED: SUCCINYLCHOLINE CHLORIDE 200MG/10ML IV ONE (17:30)
[2018-08-09] MEDS ORDERED: ETOMIDATE 2MG/ML 10ML VIAL IV ONE (17:30)
[2018-08-09] MEDS ORDERED: DOCUSATE SODIUM 100MG CAPSULE PO PRN (18:00)
[2018-08-09] MEDS ORDERED: LORAZEPAM 2MG/ML CPJ IV PRN (18:00)
[2018-08-09] MEDS ORDERED: ENOXAPARIN 40MG/0.4ML SYR SUBCUT SCH (18:00)
[2018-08-09] MEDS ORDERED: CLONIDINE 0.1MG TABLET PO PRN (18:00)
[2018-08-09] MEDS ORDERED: ONDANSETRON HCL 4MG/2ML INJ IV PRN (18:00)
[2018-08-09] MEDS ORDERED: GUAIFENESIN 200MG/10ML SUGAR FREE UDC PO PRN (18:00)
[2018-08-09] MEDS ORDERED: DILTIAZEM HCL 5MG/ML 5ML VIAL IV ONE (18:00)
[2018-08-09] MEDS ORDERED: DILTIAZEM HCL 125 MG in DEXT 5% WATER 100 ML IV ONE ×2 (18:15→18:45)
[2018-08-10] VITALS (65 sets, daily range): BP systolic 66–141; BP diastolic 38–77
[2018-08-10 03:41] LABS: BG BASE EXCESS 3.9 mmol/L (-2.0-2.0); BG CARBOXYHEMOGLOBIN 0.9 % (0.5-1.5); BG DEOXYHEMOGLOBIN 2.1 % (0.0-5.0); BG FRACTION INSPIRED OXYGEN 50; BG HCO3 ACT 26.5 mmol/L (22.0-26.0); BG METHEMOGLOBIN 0.3 % (0.0-1.5); BG OXYGEN SATURATION 97.9 % (92.0-98.5); BG OXYHEMOGLOBIN 96.7 % (94.0-97.0); BG PH 7.522 (7.350-7.450); BG PO2 98.3 mmHg (75.0-100.0); BG SAMPLE SITE RIGHT RADIAL; BG TIDAL VOLUME(mL) 450 mL; BG TOTAL HEMOGLOBIN 11.5 g/dL (12.0-18.0); BG VENT MODE AC; BG VENT RATE 14 set
[2018-08-10] MEDS ORDERED: DEXTROSE 50% WATER 50ML SYRINGE IV ONE ×3 (05:00→05:15)
[2018-08-10] MEDS ORDERED: DEXT 10% WATER 1,000 ML IV SCH ×2 (05:05→05:15)
[2018-08-10] MEDS ORDERED: DEXTROSE 50% WATER 50ML SYRINGE IV SCH (05:15)
[2018-08-10 05:48] LABS: BASOPHILS % 0.6 % (0.0-2.0); HEMATOCRIT. 32.6 % (36.0-48.0); HEMOGLOBIN. 10.6 g/dL (12.0-16.0); LYMPHOCYTES % 8.4 % (20.0-50.0); MEAN CORPUSCULAR HEMOGLOBIN 25.8 pg (28.0-32.0); MEAN CORPUSCULAR VOLUME 79.1 fL (81.0-99.0); MEAN PLATELET VOLUME 10.8 fl (7.4-10.4); MONOCYTES % 13.2 % (2.0-8.0); NEUTROPHILS % 77.8 % (40.0-76.0); PLATELET 158 x1000/uL (130-400); RED BLOOD CELL COUNT 4.12 mill/uL (4.2-5.4)
[2018-08-10 05:52] LABS: CHLORIDE 111 mEq/L (98-107)
[2018-08-10] MEDS ORDERED: NOREPINEPHRINE 16 MG in DEXT 5% WATER 234 ML IV PRN (08:15)
[2018-08-10] MEDS ORDERED: DILTIAZEM HCL 125 MG in DEXT 5% WATER 100 ML IV PRN (08:15)
[2018-08-10] MEDS: ENOXAPARIN 30MG/0.3ML SYR SUBCUT SCH (10:16)
[2018-08-10] MEDS: DEXT 5%/0.45% NACL 1000ML 1,000 ML IV SCH ×2 (12:00→12:05)
[2018-08-10] MEDS: PANTOPRAZOLE SODIUM 40 MG/VIAL IV SCH (12:54)
[2018-08-10] MEDS ORDERED: SUCCINYLCHOLINE CHLORIDE 200MG/10ML IV ONE ×2 (12:58)
[2018-08-10] MEDS ORDERED: LEVOFLOXACIN 500MG PREMIX 100 ML IV NR (14:00)
[2018-08-11] VITALS (93 sets, daily range): BP systolic 86–138; BP diastolic 15–84
[2018-08-11] MEDS: DEXT 5%/0.45% NACL 1000ML 1,000 ML IV SCH ×2 (03:13→21:07)
[2018-08-11 05:45] LABS: HEMOGLOBIN. 11.2 g/dL (12.0-16.0); MEAN CORPUSCULAR HEMOGLOBIN 25.2 pg (28.0-32.0); MEAN CORPUSCULAR VOLUME 78.5 fL (81.0-99.0); RED BLOOD CELL COUNT 4.46 mill/uL (4.2-5.4); RED CELL DISTRIBUTION WIDTH 19.1 % (11.6-14.6)
[2018-08-11 05:47] LABS: CHLORIDE 109 mEq/L (98-107)
[2018-08-11] MEDS ORDERED: DEXTROSE 50% WATER 50ML SYRINGE IV PRN (07:00)
[2018-08-11] MEDS ORDERED: MIDAZOLAM HCL 50 MG in DEXTROSE 5% WATER 40 ML IV PRN (07:00)
[2018-08-11] MEDS: PANTOPRAZOLE SODIUM 40 MG/VIAL IV SCH (09:01)
[2018-08-11] MEDS: ENOXAPARIN 30MG/0.3ML SYR SUBCUT SCH (09:02)
[2018-08-11 09:35] LABS: PLATELET ESTIMATE NORMAL
[2018-08-11 09:37] LABS: PLATELET 161 x1000/uL (130-400)
[2018-08-11] MEDS ORDERED: BLOOD SUGAR DIAGNOSTIC STRIP TEST SCH (12:00)
[2018-08-11] MEDS: BLOOD SUGAR DIAGNOSTIC STRIP TEST SCH ×2 (12:32→18:08)
[2018-08-11] MEDS: INSULIN LISPRO 100 UNITS/ML SUBCUT SCH ×2 (12:36→18:08)
[2018-08-11] MEDS ORDERED: LEVOFLOXACIN 250MG PREMIX 50 ML IV SCH (14:00)
[2018-08-11] MEDS ORDERED: POTASSIUM CHLORIDE 20MEQ/PACKET NG NR (20:00)
[2018-08-12] VITALS (99 sets, daily range): BP systolic 67–169; BP diastolic 23–99
[2018-08-12] MEDS: BLOOD SUGAR DIAGNOSTIC STRIP TEST SCH ×4 (05:36→17:38)
[2018-08-12] MEDS: INSULIN LISPRO 100 UNITS/ML SUBCUT SCH ×4 (05:36→18:08)
[2018-08-12 06:04] LABS: HEMATOCRIT. 28.7 % (36.0-48.0); HEMOGLOBIN. 9.5 g/dL (12.0-16.0); MEAN CORPUSCULAR HEMOGLOBIN 25.9 pg (28.0-32.0); MEAN CORPUSCULAR VOLUME 78.1 fL (81.0-99.0); RED BLOOD CELL COUNT 3.67 mill/uL (4.2-5.4); RED CELL DISTRIBUTION WIDTH 18.9 % (11.6-14.6)
[2018-08-12 06:09] LABS: CHLORIDE 111 mEq/L (98-107)
[2018-08-12] MEDS: ENOXAPARIN 30MG/0.3ML SYR SUBCUT SCH (09:56)
[2018-08-12] MEDS: PANTOPRAZOLE SODIUM 40 MG/VIAL IV SCH (09:56)
[2018-08-12] MEDS ORDERED: IPRATROPIUM/ALBUTEROL 0.5-3(2.5)MG/3ML NEB HHN PRN (10:00)
[2018-08-12 10:52] LABS: MEAN PLATELET VOLUME 10.7 fl (7.4-10.4); PLATELET 133 x1000/uL (130-400); PLATELET ESTIMATE NORMAL
[2018-08-12 10:56] LABS: BG BASE EXCESS 2.3 mmol/L (-2.0-2.0); BG CARBOXYHEMOGLOBIN 0.3 % (0.5-1.5); BG DEOXYHEMOGLOBIN 2.9 % (0.0-5.0); BG FRACTION INSPIRED OXYGEN 40; BG HCO3 ACT 25.1 mmol/L (22.0-26.0); BG METHEMOGLOBIN 0.1 % (0.0-1.5); BG OXYGEN SATURATION 97.1 % (92.0-98.5); BG OXYHEMOGLOBIN 96.7 % (94.0-97.0); BG PCO2 32.4 mmHg (35.0-45.0); BG PH 7.507 (7.350-7.450); BG PO2 91.8 mmHg (75.0-100.0); BG PRESSURE SUPPORT 12; BG SAMPLE SITE RIGHT RADIAL; BG TIDAL VOLUME(mL) 450 mL; BG VENT MODE VENT - SIMV; BG VENT RATE 10 set
[2018-08-12] MEDS: CEFEPIME 1,000 MG in DEXTROSE 5% WATER 50 ML IV SCH (11:44)
[2018-08-12] MEDS: METRONIDAZOLE 500 MG PREMIX 100 ML IV SCH ×2 (11:45→20:00)
[2018-08-12] MEDS: IPRATROPIUM/ALBUTEROL 0.5-3(2.5)MG/3ML NEB HHN SCH ×3 (12:37→20:18)
[2018-08-12] MEDS: DEXT 5%/0.45% NACL 1000ML 1,000 ML IV SCH (14:33)
[2018-08-12] MEDS ORDERED: POTASSIUM CHLORIDE 20MEQ/PACKET PO NR (16:49)
[2018-08-12] MEDS: ACETYLCYSTEINE 100MG/ML 10% VIAL 4ML INH SCH (17:02)
[2018-08-12] MEDS ORDERED: IOHEXOL-350 100 ML BOTTLE ONE (17:03)
[2018-08-12] MEDS: FUROSEMIDE 40MG/4ML VIAL IVP SCH (17:38)
[2018-08-13] VITALS (71 sets, daily range): BP systolic 1–125; BP diastolic 20–85
[2018-08-13] MEDS: ACETYLCYSTEINE 100MG/ML 10% VIAL 4ML INH SCH ×3 (00:14→16:25)
[2018-08-13] MEDS: IPRATROPIUM/ALBUTEROL 0.5-3(2.5)MG/3ML NEB HHN SCH ×6 (00:14→20:24)
[2018-08-13] MEDS: BLOOD SUGAR DIAGNOSTIC STRIP TEST SCH ×3 (00:16→17:41)
[2018-08-13] MEDS: METRONIDAZOLE 500 MG PREMIX 100 ML IV SCH ×3 (04:00→20:50)
[2018-08-13 05:25] LABS: HEMATOCRIT. 26.5 % (36.0-48.0); HEMOGLOBIN. 8.6 g/dL (12.0-16.0); MEAN CORPUSCULAR HEMOGLOBIN 25.6 pg (28.0-32.0); MEAN CORPUSCULAR VOLUME 78.6 fL (81.0-99.0); MEAN PLATELET VOLUME 11.9 fl (7.4-10.4); PLATELET 139 x1000/uL (130-400); RED BLOOD CELL COUNT 3.38 mill/uL (4.2-5.4); RED CELL DISTRIBUTION WIDTH 18.5 % (11.6-14.6)
[2018-08-13 05:33] LABS: CHLORIDE 107 mEq/L (98-107)
[2018-08-13 05:40] LABS: LDL CHOLESTEROL 51 mg/dL (5-100)
[2018-08-13 05:41] LABS: HDL CHOLESTEROL 32 mg/dL (40-59)
[2018-08-13] MEDS: INSULIN LISPRO 100 UNITS/ML SUBCUT SCH ×4 (06:00→17:41)
[2018-08-13 08:00] LABS: BG CARBOXYHEMOGLOBIN 0.8 % (0.5-1.5); BG DEOXYHEMOGLOBIN 0.7 % (0.0-5.0); BG FRACTION INSPIRED OXYGEN 40; BG HCO3 ACT 24.9 mmol/L (22.0-26.0); BG METHEMOGLOBIN 0.4 % (0.0-1.5); BG OXYGEN SATURATION 99.3 % (92.0-98.5); BG OXYHEMOGLOBIN 98.1 % (94.0-97.0); BG PCO2 28.2 mmHg (35.0-45.0); BG PH 7.563 (7.350-7.450); BG PO2 184.8 mmHg (75.0-100.0); BG SAMPLE SITE RIGHT BRACHIAL; BG TIDAL VOLUME(mL) 450 mL; BG TOTAL HEMOGLOBIN 9.3 g/dL (12.0-18.0); BG VENT MODE VENT - A/C; BG VENT RATE 10 set
[2018-08-13] MEDS: PANTOPRAZOLE SODIUM 40 MG/VIAL IV SCH (09:08)
[2018-08-13] MEDS: FUROSEMIDE 40MG/4ML VIAL IVP SCH (09:08)
[2018-08-13] MEDS: ENOXAPARIN 30MG/0.3ML SYR SUBCUT SCH (09:09)
[2018-08-13] MEDS: ACETAMINOPHEN 325MG TABLET PO PRN (09:09)
[2018-08-13] MEDS: DEXT 5%/0.45% NACL 1000ML 1,000 ML IV SCH (09:10)
[2018-08-13 09:51] LABS: PLATELET ESTIMATE NORMAL
[2018-08-13] MEDS ORDERED: MAGNESIUM 2 G PREMIX 50 ML IV SCH (12:00)
[2018-08-13] MEDS: CEFEPIME 1,000 MG in DEXTROSE 5% WATER 50 ML IV SCH (12:51)
[2018-08-14] VITALS (40 sets, daily range): BP systolic 91–106; BP diastolic 45–66
[2018-08-14] MEDS: ACETYLCYSTEINE 100MG/ML 10% VIAL 4ML INH SCH ×2 (00:29→08:27)
[2018-08-14] MEDS: IPRATROPIUM/ALBUTEROL 0.5-3(2.5)MG/3ML NEB HHN SCH ×5 (00:30→20:24)
[2018-08-14] MEDS: INSULIN LISPRO 100 UNITS/ML SUBCUT SCH ×4 (01:18→18:11)
[2018-08-14] MEDS: METRONIDAZOLE 500 MG PREMIX 100 ML IV SCH ×3 (04:00→20:00)
[2018-08-14] MEDS: BLOOD SUGAR DIAGNOSTIC STRIP TEST SCH ×4 (06:00→18:11)
[2018-08-14 06:21] LABS: CHLORIDE 110 mEq/L (98-107)
[2018-08-14 06:33] LABS: BASOPHILS % 0.2 % (0.0-2.0); EOSINOPHILS % 0.1 % (0.0-5.0); HEMATOCRIT. 26.4 % (36.0-48.0); HEMOGLOBIN. 8.7 g/dL (12.0-16.0); LYMPHOCYTES % 10.1 % (20.0-50.0); MEAN CORPUSCULAR HEMOGLOBIN 25.6 pg (28.0-32.0); MEAN CORPUSCULAR VOLUME 77.7 fL (81.0-99.0); MEAN PLATELET VOLUME 11.6 fl (7.4-10.4); MONOCYTES % 12.5 % (2.0-8.0); NEUTROPHILS % 77.1 % (40.0-76.0); PLATELET 135 x1000/uL (130-400); RED BLOOD CELL COUNT 3.39 mill/uL (4.2-5.4); RED CELL DISTRIBUTION WIDTH 18.6 % (11.6-14.6)
[2018-08-14 06:34] LABS: CREATINE KINASE 128 IU/L (26-192)
[2018-08-14 06:37] LABS: CREATINE KINASE MB FRACTION 1.7 ng/mL (0.5-3.6)
[2018-08-14] MEDS: PANTOPRAZOLE SODIUM 40 MG/VIAL IV SCH (08:37)
[2018-08-14] MEDS: ENOXAPARIN 30MG/0.3ML SYR SUBCUT SCH (08:37)
[2018-08-14] MEDS: FUROSEMIDE 40MG/4ML VIAL IVP SCH (08:37)
[2018-08-14 10:06] LABS: BG BASE EXCESS 3.4 mmol/L (-2.0-2.0); BG CARBOXYHEMOGLOBIN 0.7 % (0.5-1.5); BG DEOXYHEMOGLOBIN 0.9 % (0.0-5.0); BG FRACTION INSPIRED OXYGEN 40; BG HCO3 ACT 25.9 mmol/L (22.0-26.0); BG METHEMOGLOBIN 0.4 % (0.0-1.5); BG OXYGEN SATURATION 99.1 % (92.0-98.5); BG PCO2 31.3 mmHg (35.0-45.0); BG PH 7.536 (7.350-7.450); BG PO2 152.1 mmHg (75.0-100.0); BG PRESSURE SUPPORT 14; BG SAMPLE SITE RIGHT BRACHIAL; BG TIDAL VOLUME(mL) 450 mL; BG TOTAL HEMOGLOBIN 9.1 g/dL (12.0-18.0); BG VENT MODE VENT - SIMV; BG VENT RATE 10 set
[2018-08-14] MEDS: CEFEPIME 1,000 MG in DEXTROSE 5% WATER 50 ML IV SCH (10:19)
[2018-08-14] MEDS: ACETAMINOPHEN 325MG TABLET PO PRN (18:11)
[2018-08-15] VITALS (45 sets, daily range): BP systolic 88–114; BP diastolic 46–71
[2018-08-15] MEDS: IPRATROPIUM/ALBUTEROL 0.5-3(2.5)MG/3ML NEB HHN SCH ×7 (00:28→23:52)
[2018-08-15] MEDS: ACETYLCYSTEINE 100MG/ML 10% VIAL 4ML INH SCH ×4 (00:29→23:53)
[2018-08-15] MEDS: METRONIDAZOLE 500 MG PREMIX 100 ML IV SCH ×3 (04:00→22:15)
[2018-08-15 05:38] LABS: HEMATOCRIT. 24.9 % (36.0-48.0); HEMOGLOBIN. 8.2 g/dL (12.0-16.0); MEAN CORPUSCULAR HEMOGLOBIN 26.1 pg (28.0-32.0); MEAN CORPUSCULAR VOLUME 79.2 fL (81.0-99.0); MEAN PLATELET VOLUME 11.8 fl (7.4-10.4); PLATELET 143 x1000/uL (130-400); RED BLOOD CELL COUNT 3.14 mill/uL (4.2-5.4); RED CELL DISTRIBUTION WIDTH 18.9 % (11.6-14.6)
[2018-08-15 05:47] LABS: CHLORIDE 111 mEq/L (98-107)
[2018-08-15] MEDS: BLOOD SUGAR DIAGNOSTIC STRIP TEST SCH ×4 (06:00→17:13)
[2018-08-15] MEDS: INSULIN LISPRO 100 UNITS/ML SUBCUT SCH ×4 (06:00→17:54)
[2018-08-15 07:22] LABS: PLATELET ESTIMATE NORMAL
[2018-08-15 08:32] LABS: BG BASE EXCESS 2.4 mmol/L (-2.0-2.0); BG CARBOXYHEMOGLOBIN 0.9 % (0.5-1.5); BG FRACTION INSPIRED OXYGEN 40; BG HCO3 ACT 25.4 mmol/L (22.0-26.0); BG METHEMOGLOBIN 0.5 % (0.0-1.5); BG OXYHEMOGLOBIN 97.6 % (94.0-97.0); BG PCO2 33.2 mmHg (35.0-45.0); BG PH 7.502 (7.350-7.450); BG PO2 151.3 mmHg (75.0-100.0); BG PRESSURE SUPPORT 10; BG SAMPLE SITE RIGHT RADIAL; BG TIDAL VOLUME(mL) 450 mL; BG TOTAL HEMOGLOBIN 9.2 g/dL (12.0-18.0); BG VENT MODE VENT - SIMV; BG VENT RATE 8 set
[2018-08-15] MEDS: FUROSEMIDE 40MG/4ML VIAL IVP SCH (09:13)
[2018-08-15] MEDS: PANTOPRAZOLE SODIUM 40 MG/VIAL IV SCH (09:13)
[2018-08-15] MEDS: ENOXAPARIN 30MG/0.3ML SYR SUBCUT SCH (09:14)
[2018-08-15] MEDS ORDERED: FUROSEMIDE 40MG/4ML VIAL IVP NR (11:15)
[2018-08-15] MEDS: CEFEPIME 1,000 MG in DEXTROSE 5% WATER 50 ML IV SCH (11:47)
[2018-08-15 12:52] LABS: BG BASE EXCESS 5.1 mmol/L (-2.0-2.0); BG DEOXYHEMOGLOBIN 1.7 % (0.0-5.0); BG FRACTION INSPIRED OXYGEN 40; BG HCO3 ACT 28.2 mmol/L (22.0-26.0); BG METHEMOGLOBIN 0.5 % (0.0-1.5); BG OXYGEN SATURATION 98.3 % (92.0-98.5); BG OXYHEMOGLOBIN 96.8 % (94.0-97.0); BG PCO2 35.2 mmHg (35.0-45.0); BG PH 7.521 (7.350-7.450); BG PO2 110.5 mmHg (75.0-100.0); BG PRESSURE SUPPORT 8; BG SAMPLE SITE RIGHT RADIAL; BG TOTAL HEMOGLOBIN 8.4 g/dL (12.0-18.0); BG VENT MODE VENT - CPAP
[2018-08-15] MEDS: ACETAMINOPHEN 325MG TABLET PO PRN (17:12)
[2018-08-15] MEDS ORDERED: DOCUSATE SODIUM SUGAR FREE 100MG/10ML UDC PO PRN (17:15)
[2018-08-16] VITALS (30 sets, daily range): BP systolic 87–116; BP diastolic 44–63
[2018-08-16] MEDS: INSULIN LISPRO 100 UNITS/ML SUBCUT SCH ×4 (00:57→17:08)
[2018-08-16] MEDS: IPRATROPIUM/ALBUTEROL 0.5-3(2.5)MG/3ML NEB HHN SCH ×5 (03:18→20:23)
[2018-08-16] MEDS: METRONIDAZOLE 500 MG PREMIX 100 ML IV SCH ×3 (04:26→21:07)
[2018-08-16] MEDS: ACETYLCYSTEINE 100MG/ML 10% VIAL 4ML INH SCH ×2 (09:46→16:12)
[2018-08-16] MEDS: PANTOPRAZOLE SODIUM 40 MG/VIAL IV SCH (09:47)
[2018-08-16] MEDS: ENOXAPARIN 30MG/0.3ML SYR SUBCUT SCH (09:47)
[2018-08-16] MEDS: FUROSEMIDE 40MG/4ML VIAL IVP SCH (09:47)
[2018-08-16 11:16] LABS: BG BASE EXCESS 5.3 mmol/L (-2.0-2.0); BG CARBOXYHEMOGLOBIN 1.3 % (0.5-1.5); BG DEOXYHEMOGLOBIN 1.4 % (0.0-5.0); BG FRACTION INSPIRED OXYGEN 40; BG HCO3 ACT 28.3 mmol/L (22.0-26.0); BG METHEMOGLOBIN 0.6 % (0.0-1.5); BG OXYGEN SATURATION 98.6 % (92.0-98.5); BG OXYHEMOGLOBIN 96.7 % (94.0-97.0); BG PCO2 34.7 mmHg (35.0-45.0); BG PH 7.529 (7.350-7.450); BG PO2 122.2 mmHg (75.0-100.0); BG PRESSURE SUPPORT 8; BG SAMPLE SITE RIGHT RADIAL; BG TOTAL HEMOGLOBIN 8.8 g/dL (12.0-18.0); BG VENT MODE VENT - CPAP
[2018-08-16] MEDS: CEFEPIME 1,000 MG in DEXTROSE 5% WATER 50 ML IV SCH (11:19)
[2018-08-16 11:37] LABS: HEMOGLOBIN. 8.9 g/dL (12.0-16.0); MEAN CORPUSCULAR HEMOGLOBIN 26.1 pg (28.0-32.0); MEAN CORPUSCULAR VOLUME 79.7 fL (81.0-99.0); MEAN PLATELET VOLUME 11.1 fl (7.4-10.4); PLATELET 178 x1000/uL (130-400); RED BLOOD CELL COUNT 3.39 mill/uL (4.2-5.4); RED CELL DISTRIBUTION WIDTH 18.4 % (11.6-14.6)
[2018-08-16 11:42] LABS: CHLORIDE 110 mEq/L (98-107)
[2018-08-16 11:46] LABS: PHOSPHORUS 2.6 mg/dL (2.5-4.9)
[2018-08-16] MEDS: BLOOD SUGAR DIAGNOSTIC STRIP TEST SCH ×4 (12:00→17:31)
[2018-08-16 12:11] LABS: PLATELET ESTIMATE NORMAL
[2018-08-17] VITALS: BP 108/59
[2018-08-17] MEDS: BLOOD SUGAR DIAGNOSTIC STRIP TEST SCH
[2018-08-17] MEDS: IPRATROPIUM/ALBUTEROL 0.5-3(2.5)MG/3ML NEB HHN SCH (00:01)
[2018-08-17] MEDS: ACETYLCYSTEINE 100MG/ML 10% VIAL 4ML INH SCH (00:01)
[2018-08-17 00:30] VITALS: BP 116/55
[2018-08-17 01:00] VITALS: BP 104/51
[2018-08-17 01:30] VITALS: BP 98/59
[2018-08-17] MEDS: INSULIN LISPRO 100 UNITS/ML SUBCUT SCH (01:37)
[2018-08-17] MEDS ORDERED: SODIUM BICARBONATE 8.4% 10MEQ/10ML SYR IV ONE (13:30)
[2018-08-17] MEDS ORDERED: CALCIUM CHLORIDE 1GM/10ML SYR IV ONE (13:30)
[2018-08-17] MEDS ORDERED: DEXTROSE 50% WATER 50ML SYRINGE IV ONE (13:30)
[2018-08-17] MEDS ORDERED: EPINEPHRINE 0.1MG/ML (1:10,000) 10ML SYR ONE (13:30)
== END 2018-08-17 04:00 | disposition expired | DRG 870 ==
LOC: ER 11:24 → MICUSO 15:40 → EDBEDREQSVC 15:42 → EDBEDREQ 15:42 → SUPCPDRO 17:46 → ENRESERV 08-10 04:29
PROVIDERS: ADMIT Hospitalist; ATTEND Hospitalist
PROC: 0BH18EZ Insertion of Endotracheal Airway into Trachea, Via Natural or Artificial Opening Endoscopic (ICD-10-PCS; principal; 2018-08-09)
PROC: 5A1955Z Respiratory Ventilation, Greater than 96 Consecutive Hours (ICD-10-PCS; 2018-08-09)
PROC: 02HV33Z Insertion of Infusion Device into Superior Vena Cava, Percutaneous Approach (ICD-10-PCS; 2018-08-09)
PROC: B5181ZA Fluoroscopy of Superior Vena Cava using Low Osmolar Contrast, Guidance (ICD-10-PCS; 2018-08-09)
PROC: B548ZZA Ultrasonography of Superior Vena Cava, Guidance (ICD-10-PCS; 2018-08-09)
PROC: 5A2204Z Restoration of Cardiac Rhythm, Single (ICD-10-PCS; 2018-08-09)
PROC: 5A12012 Performance of Cardiac Output, Single, Manual (ICD-10-PCS; 2018-08-17)
PROC: 0BH18EZ Insertion of Endotracheal Airway into Trachea, Via Natural or Artificial Opening Endoscopic (ICD-10-PCS; 2018-08-17)
PROC: 5A1935Z Respiratory Ventilation, Less than 24 Consecutive Hours (ICD-10-PCS; 2018-08-17)
DX: A41.9 Sepsis, unspecified organism (principal); E43 Unspecified severe protein-calorie malnutrition; J96.00 Acute respiratory failure, unspecified whether with hypoxia or hypercapnia; G93.41 Metabolic encephalopathy; I50.23 Acute on chronic systolic (congestive) heart failure; J69.0 Pneumonitis due to inhalation of food and vomit; E87.3 Alkalosis; I42.0 Dilated cardiomyopathy; I46.9 Cardiac arrest, cause unspecified; I11.0 Hypertensive heart disease with heart failure; E03.9 Hypothyroidism, unspecified; E11.51 Type 2 diabetes mellitus with diabetic peripheral angiopathy without gangrene; E78.5 Hyperlipidemia, unspecified; E83.42 Hypomagnesemia; F03.90 Unspecified dementia, unspecified severity, without behavioral disturbance, psychotic disturbance, mood disturbance, and anxiety; I27.20 Pulmonary hypertension, unspecified; E11.649 Type 2 diabetes mellitus with hypoglycemia without coma; K21.9 Gastro-esophageal reflux disease without esophagitis; R62.7 Adult failure to thrive; M62.50 Muscle wasting and atrophy, not elsewhere classified, unspecified site; Z79.4 Long term (current) use of insulin; Z74.01 Bed confinement status; I25.2 Old myocardial infarction; Z86.73 Personal history of transient ischemic attack (TIA), and cerebral infarction without residual deficits; Z68.24 Body mass index [BMI] 24.0-24.9, adult
CPT/HCPCS: 31500; 36415; 36569; 36600; 71045; 75635; 76937; 77001; 80048; 80061; 82375; 82550; 82553; 82805; 82962; 83735; 83880; 84100; 84134; 84443; 84484; 85379; 93005; 93306; 93923; 93970; 94002; 94003; 94640; 96365; 96368; 96375; 99291; C1725; C9113; J0330; J0692; J0696; J1650; J1815; J1940; J1956; J2250; J3475; J3490; J7030; J7050; J7060; J7608; J7620; Q9967; A4315